=== PATIENT | male | born 1960 | race Caucasian/White ===

== ENCOUNTER 2019-06-03 21:32 | Emergency (ER) | payer OTHER, MEDICAID ==
[2019-06-03] MEDS: FLUORESCEIN STRIP LEFT EYE (23:27)
[2019-06-03] MEDS: TETRACAINE 0.5% 4 ML OPH LEFT EYE (23:28)
== END 2019-06-04 02:23 | disposition home or self-care (01) ==
LOC: FTE 06-04 02:23
DX: H57.12 Ocular pain, left eye (principal); I10 Essential (primary) hypertension; H53.8 Other visual disturbances; H57.89 Other specified disorders of eye and adnexa; R94.02 Abnormal brain scan
CPT/HCPCS: 70450; 70480; 76536; 99284-25